=== PATIENT | female | born 1990 | race Caucasian/White ===

== ENCOUNTER → 2023-12-23 | Outpatient (CLI) | payer OTHER ==
--- NOTE | 2023-12-23 16:04 | US ---
EXAMINATION TYPE: US pelvic complete DATE OF EXAM: 12/23/2023 COMPARISON: NONE CLINICAL INDICATION: Female, 33 years old with history of R10.2 PELVIC AND PERINEAL PAIN; RLQ pain x 1 year, noticed rapid weight gain and increased facial hair TECHNIQUE: Transabdominal (TA). Transabdominal sonographic images of the pelvis were acquired. Date of LMP: 12/02/2023 EXAM MEASUREMENTS: Uterus: 7.0x2.5x4.9 cm Endometrial Stripe: 0.8 cm Right Ovary: 4.2x4.8x3.1 cm Left Ovary: 3.4x2.2x3.5 cm 1. Uterus: Anteverted wnl 2. Endometrium: wnl 3. Right Ovary: 2.4x2.4x2.3cm dominant follicle vs cystic area, bulky appearance with peripheral fol licles 4. Left Ovary: bulky appearance with peripheral follicle string of sisi sign 5. Bilateral Adnexa: Obscured by overlying bowel gas 6. Posterior cul-de-sac: wnl IMPRESSION: 1. Right ovarian cyst. Follow-up exam in 6 weeks or following the next normal menstrual period is rec ommended. 2. Multiple peripheral follicles left ovary.
== END | disposition home or self-care (01) ==
LOC: RADUSWWP 08:47
PROVIDERS: ATTEND Family Medicine
DX: N83.201 Unspecified ovarian cyst, right side (principal)
CPT/HCPCS: 76856

== ENCOUNTER → 2024-02-03 | Outpatient (CLI) | payer OTHER ==
--- NOTE | 2024-02-03 18:14 | CT ---
EXAMINATION TYPE: CT abdomen pelvis w con CT DLP: 563.40 mGycm, Automated exposure control for dose reduction was used. DATE OF EXAM: 02/03/2024 4:21 PM COMPARISON: Pelvic ultrasound 12/23/2023 CLINICAL INDICATION:Female, 33 years old with history of K40.90 UNIL INGUINAL HERNIA, W/O OBST OR NASRIN GR; Unilateral inguinal hernia RT side. Pt states she had inguinal hernia sx as a baby but doesnt rem ember which side. TECHNIQUE: Standard CT of the abdomen and pelvis following the administration of 100 cc of Isovue 3 00 IV contrast material and oral contrast. Coronal and sagittal reformats were performed. FINDINGS: LOWER CHEST: Unremarkable ABDOMEN LIVER: Unremarkable GALLBLADDER AND BILE DUCTS: Unremarkable. PANCREAS: Unremarkable. SPLEEN: Unremarkable. ADRENAL GLANDS: Unremarkable. KIDNEYS AND URETERS: No evidence of hydronephrosis or renal calculus. The kidneys enhance symmetrical ly. Contrast is demonstrated within both collecting systems on the delayed phase. PELVIS BLADDER: Unremarkable REPRODUCTIVE: Unremarkable anteverted uterus. Corpus luteal cyst identified within the right ovary wi th crenulated appearance. ABDOMEN & PELVIS STOMACH AND BOWEL: Stomach and duodenum are unremarkable. No focal bowel wall thickening or surroundi ng inflammatory changes. Enteric contrast reaches the transverse colon. The appendix is within normal limits. No evidence of bowel obstruction. PERITONEUM: No evidence of pneumoperitoneum or free fluid. VASCULATURE: No evidence of aortic aneurysm. MUSCULOSKELETAL: No acute osseous abnormalities LYMPH NODES: No gross evidence for lymphadenopathy. SOFT TISSUE/ABDOMINAL WALL: Unremarkable. No evidence for inguinal hernia. No umbilical hernia. IMPRESSION: No evidence for acute process or inguinal hernia.
== END | disposition home or self-care (01) ==
LOC: RADCTMAIN 14:10
PROVIDERS: ATTEND Family Medicine
DX: K40.90 Unilateral inguinal hernia, without obstruction or gangrene, not specified as recurrent (principal); N83.9 Noninflammatory disorder of ovary, fallopian tube and broad ligament, unspecified
CPT/HCPCS: 74177; Q9967

== ENCOUNTER → 2024-04-20 | Outpatient (CLI) | payer OTHER ==
--- NOTE | 2024-04-20 16:06 | US ---
EXAMINATION TYPE: US pelvic complete DATE OF EXAM: 04/20/2024 COMPARISON: CLINICAL INDICATION: Female, 34 years old with history of R10.9 UNSPECIFIED ABDOMINAL PAIN; Follow up corpus luteal cyst TECHNIQUE: Transabdominal (TA). Transabdominal sonographic images of the pelvis were acquired. Date of LMP: 04/09/24, G0 EXAM MEASUREMENTS: Uterus: 7.6 x 4.4 x 2.5 cm Endometrial Stripe: 0.8 cm Right Ovary: 3.0 x 2.3 x 1.8 cm Left Ovary: 2.8 x 2.5 x 2.0 cm 1. Uterus: Anteverted wnl 2. Endometrium: wnl 3. Right Ovary: follicles seen 4. Left Ovary: follicles seen 5. Bilateral Adnexa: wnl 6. Posterior cul-de-sac: no free fluid Urinary bladder is sonolucent. Posterior wall is normal. IMPRESSION: 1. Normal pelvic ultrasound [facility] Gardenia Lutz, , 04/20/2024 4:04 PM
== END | disposition home or self-care (01) ==
LOC: RADUSWWP 13:11
PROVIDERS: ATTEND Family Medicine
DX: N83.291 Other ovarian cyst, right side (principal)
CPT/HCPCS: 76856